=== PATIENT | male | born 1975 | race Caucasian/White ===

== ENCOUNTER 2017-05-22 15:29 | Emergency (ER) | payer BC ==
[~2017-05-22] VITALS: Ht 182.9 cm; Wt 130.9 kg
[~2017-05-22 15:29] MED LIST: FLEXERIL10 MG PO; HYDROCODON-ACE1 EAC7 PO; PREDNISONE10 MG PO; PROAIR HFA8.5 GM IH
[2017-05-22] MEDS ORDERED: SYMBICORT60 INHALAT IH (15:47)
[2017-05-22] MEDS ORDERED: ALBUTEROL2.5 MG/3 M IH (15:48)
[2017-05-22] MEDS ORDERED: ZITHROMAX250 MG PO (17:44)
[2017-05-22] MEDS ORDERED: PREDNISONE20 MG PO (17:44)
[2017-05-22 17:52] VITALS: BP 146/87
== END 2017-05-22 17:52 | disposition home or self-care (01) ==
LOC: EME 15:29
DX: J45.901 Unspecified asthma with (acute) exacerbation (principal); J20.9 Acute bronchitis, unspecified; K21.9 Gastro-esophageal reflux disease without esophagitis; Z87.891 Personal history of nicotine dependence
CPT/HCPCS: 94640; 99281; 99283; J7512